=== PATIENT | female | born 1980 | race African-American/Black ===

== ENCOUNTER 2019-06-26 06:29 | Inpatient (IN) | payer OTHER ==
[2019-06-20 12:29] VITALS: BMI 20.2
[2019-06-26] MEDS ORDERED: EPHEDRINE SULFATE/0.9% NACL/PF 50 MG/10 ML SYRINGE NR ONE (07:30)
[2019-06-26] MEDS ORDERED: PROPOFOL 20 ML ONE ×2 (07:31)
[2019-06-26] MEDS ORDERED: SUCCINYLCHOLINE CHLORIDE 200 MG/10 ML SYRINGE ONE (07:31)
[2019-06-26] MEDS ORDERED: fentaNYL CITRATE 250 MCG/5 ML VIAL ONE (07:31)
[2019-06-26] MEDS ORDERED: ROCURONIUM BROMIDE 50 MG/5 ML SYRINGE ONE (07:31)
[2019-06-26] MEDS ORDERED: MIDAZOLAM HCL 2 MG/2 ML SINGLE DOSE VIAL ONE ×3 (07:31→07:45)
--- NOTE | 2019-06-26 07:41 | HP ---
Admitting History and Physical - Admission Chief Complaint: Prolonged menses / Pelvic pain History of Present Illness: 38 yo Para 3 with 3 previous c-sections, is pre op for abdominal hysterectomy. She has been experiencing heavy and prolonged menses associated with pelvic pain. History Source: Patient Limitations to Obtaining History: No Limitations - Past Medical History ...LMP: 06/17/19 ...: No ...Para: 3 - Past Surgical History Past Surgical History: Yes: - Smoking History Smoking history: Current every day smoker Have you smoked in the past 12 months: Yes Aproximately how many cigarettes per day: 7 - Alcohol/Substance Use Hx Alcohol Use: No - Social History History of Recent Travel: No Home Medications - Allergies Allergies/Adverse Reactions: Allergies Allergy/AdvReac Type Severity Reaction Status Date / Time shellfish derived Allergy Unknown Verified 06/26/19 07:33 - Home Medications Home Medications: Ambulatory Orders Acetaminophen [Tylenol] 650 mg PO Q6H PRN 06/20/19 Albuterol Sulfate Inhaler - [Ventolin Hfa Inhaler -] 2 inh PO Q4H PRN 06/20/19 Gabapentin 100 mg PO DAILY 06/20/19 Mirtazapine [Remeron -] 30 mg PO DAILY 06/20/19 Oxycodone HCl/Acetaminophen [Oxycodone-Acetaminophen 5-325] 10 mg PO TID Sumatriptan Succinate 100 mg PO PRN PRN 06/20/19 Zolpidem Tartrate [Ambien] 5 mg PO PRN PRN 06/20/19 Family Medical History Family History: Unremarkable Review of Systems - Review of Systems Constitutional: denies: Fever Eyes: denies: Blurred Vision HENT: reports: No Symptoms Neck: reports: No Symptoms Cardiovascular: reports: No Symptoms Respiratory: reports: No Symptoms Gastrointestinal: reports: No Symptoms Genitourinary: reports: Pain Breasts: reports: No Symptoms Reported Musculoskeletal: reports: No Symptoms Integumentary: reports: No Symptoms Neurological: reports: No Symptoms Endocrine: reports: No Symptoms Hematology/Lymphatic: reports: No Symptoms Psychiatric: reports: No Symptoms Pain Intensity: 3 Physical Examination Vital Signs: Vital Signs Temperature 98.4 F 06/26/19 07:24 Pulse Rate 88 06/26/19 07:24 Respiratory Rate 20 06/26/19 07:24 Blood Pressure 106/62 06/26/19 07:24 O2 Sat by Pulse Oximetry (%) 98 06/26/19 07:21 Constitutional: No: No Distress Eyes: Yes: Conjunctiva Clear HENT: Yes: Atraumatic Neck: Yes: Supple Cardiovascular: Yes: Regular Rate and Rhythm Respiratory: Yes: Regular Gastrointestinal: Yes: Normal Bowel Sounds Breast(s): Yes: WNL Musculoskeletal: Yes: WNL Extremities: Yes: WNL Neurological: Yes: Alert, Oriented ...Motor Strength: WNL Psychiatric: Yes: Alert, Oriented Problem List - Problems (1) Menorrhagia Problems reviewed: Yes Code(s): N92.0 - EXCESSIVE AND FREQUENT MENSTRUATION WITH REGULAR CYCLE Qualifiers: Menorrhagia type: with regular cycle Qualified Code(s): N92.0 - Excessive and frequent menstruation with regular cycle (2) Pelvic pain Problems reviewed: Yes Code(s): R10.2 - PELVIC AND PERINEAL PAIN Assessment/Plan Menorrhagia Pelvic pain Pre op for abdominal hysterectomy Consent signed Anesthesia to see patient
[2019-06-26] MEDS ORDERED: ceFAZolin SODIUM 1 GM VIAL IVPB ONE (08:20)
[2019-06-26] MEDS ORDERED: NEOSTIGMINE METHYLSULFATE 0.5 MG/ML - 10 ML MDV ONE (09:26)
[2019-06-26] MEDS ORDERED: HYDROmorphone HCl 2 MG/ML VIAL ONE (10:13)
[2019-06-26] MEDS ORDERED: IBUPROFEN 800 MG/8 ML IJ IVPB PRN (10:22)
[2019-06-26] MEDS ORDERED: HYDROmorphone HCl 2 MG/ML VIAL IVPB PRN (10:22)
--- NOTE | 2019-06-26 10:27 | OP ---
Operative Note - Note: Operative Date: 06/26/19 Pre-Operative Diagnosis: Menorrhagia / Pelvic pain Operation: Amdominal hysterectomy / Bilateral salpingectomy / Keloid removal Findings: Pelvic adhesions Post-Operative Diagnosis: Same as Pre-op Surgeon: Mily Wolf Utility Worker Production: Mk Floyd Anesthesia: General Specimens Removed: Uterus/Tubes/Cervix Estimated Blood Loss (mls): 100
[2019-06-26] MEDS: HYDROmorphone HCL CARPU-JECT 2 MG/1 ML DISP.SYRIN IVPUSH ONE ×2 (10:28→19:44)
[2019-06-26] MEDS ORDERED: oxyCODONE HCL 5 MG TABLET PO PRN (10:30)
[2019-06-26] MEDS ORDERED: LACTATED RINGERS SOLUTION 1,000 ML IV SCH (10:30)
[2019-06-26] MEDS ORDERED: DEXTROSE 5%-LACTATED RINGERS 1,000 ML IV SCH (10:30)
[2019-06-26] MEDS ORDERED: ONDANSETRON 4 MG/2 ML VIAL IVPUSH PRN (10:30)
[2019-06-26] MEDS ORDERED: HYDROmorphone HCl 2 MG/ML VIAL IVPUSH ONE (10:35)
[2019-06-26] MEDS: ACETAMINOPHEN 325 MG TABLET (FP) PO SCH ×3 (13:13→21:41)
[2019-06-26] MEDS: oxyCODONE HCL 5 MG TABLET PO PRN ×2 (14:08→17:46)
[2019-06-26] MEDS: traMADol HCL 50 MG TABLET PO PRN ×2 (15:49→21:41)
[2019-06-27] MEDS: oxyCODONE HCL 5 MG TABLET PO PRN ×4 (04:54→19:23)
[2019-06-27] MEDS: ACETAMINOPHEN 325 MG TABLET (FP) PO SCH ×4 (04:55→22:03)
--- NOTE | 2019-06-27 09:20 | PN ---
Progress Note, Physician Chief Complaint: Post op care History of Present Illness: Patient seen and evaluated, she c/o incision pain. She's status post abdominal hysterectomy. - Current Medication List Current Medications: Active Medications Acetaminophen (Tylenol -) 650 mg PO Q6H CHATO Stop: 06/29/19 10:29 Last Admin: 06/27/19 04:55 Dose: 650 mg Diphenhydramine HCl (Benadryl Injection -) 50 mg IM Q6H PRN PRN Reason: INSOMNIA Last Admin: 06/26/19 21:41 Dose: 50 mg Hydromorphone HCl (Dilaudid Vial -) 2 mg IVPB Q4H PRN PRN Reason: PAIN LEVEL 4 - 6 Dextrose/Lactated Ringer's (D5-Lr -) 1,000 mls @ 125 mls/hr IV ASDIR CHATO Last Admin: 06/26/19 11:55 Dose: 0 mls Ibuprofen (Caldolor Injection -) 800 mg IVPB Q8H PRN PRN Reason: FEVER Ondansetron HCl (Zofran Injection) 4 mg IVPUSH Q6H PRN PRN Reason: NAUSEA AND/OR VOMITING Oxycodone HCl (Roxicodone -) 5 mg PO Q3H PRN PRN Reason: PAIN LEVEL 4 - 6 Oxycodone HCl (Roxicodone -) 10 mg PO Q3H PRN PRN Reason: PAIN LEVEL 7 - 10 Last Admin: 06/27/19 04:54 Dose: 10 mg Tramadol HCl (Ultram -) 50 mg PO Q3H PRN PRN Reason: PAIN LEVEL 1 - 3 Last Admin: 06/26/19 21:41 Dose: 50 mg - Objective Vital Signs: Vital Signs Temperature 98.2 F 06/27/19 09:11 Pulse Rate 83 06/27/19 09:11 Respiratory Rate 18 06/27/19 09:11 Blood Pressure 121/76 06/27/19 09:11 O2 Sat by Pulse Oximetry (%) 100 06/26/19 12:15 Constitutional: Yes: Well Nourished Eyes: Yes: Conjunctiva Clear HENT: Yes: Atraumatic Neck: Yes: Supple Cardiovascular: Yes: Regular Rate and Rhythm Respiratory: Yes: Regular Gastrointestinal: Yes: Normal Bowel Sounds Genitourinary: No: Bladder Distention Breast(s): Yes: WNL Musculoskeletal: Yes: WNL Extremities: Yes: WNL Wound/Incision: Yes: Dressing Dry and Intact Neurological: Yes: Alert, Oriented ...Motor Strength: WNL Psychiatric: Yes: Alert, Oriented Problem List - Problems (1) Menorrhagia Problems reviewed: Yes Code(s): N92.0 - EXCESSIVE AND FREQUENT MENSTRUATION WITH REGULAR CYCLE Qualifiers: Menorrhagia type: with regular cycle Qualified Code(s): N92.0 - Excessive and frequent menstruation with regular cycle (2) Pelvic pain Problems reviewed: Yes Code(s): R10.2 - PELVIC AND PERINEAL PAIN (3) Status post abdominal hysterectomy Problems reviewed: Yes Code(s): Z90.710 - ACQUIRED ABSENCE OF BOTH CERVIX AND UTERUS Assessment/Plan Status abdominal hysterectomy Ambulation Regular diet Analgesia as needed D/C Li catheter D/C IVF F/U Labs Continue post op care
[2019-06-27 10:19] LABS: BASO % 0.5 % (0-2.0); EOS % 0.1 % (0-4.5); HEMATOCRIT 27.9 % (32.4-45.2); HEMOGLOBIN 9.4 GM/dL (10.7-15.3); LYMPH % 18.6 % (8-40); MCH 32.7 pg (25.7-33.7); MCHC 33.8 g/dl (32.0-36.0); MEAN CELL VOLUME 96.8 fl (80-96); MEAN PLT VOLUME 7.7 fl (7.5-11.1); MONO % 13.4 % (3.8-10.2); NEUT % 67.4 % (42.8-82.8); PLATELET COUNT 270 K/MM3 (134-434); RBC 2.89 M/mm3 (3.60-5.2); RDW 13.1 % (11.6-15.6); WHITE BLOOD COUNT 17.3 K/mm3 (4.0-10.0)
[2019-06-27 11:01] LABS: BLOOD UREA NITROGEN 4.6 mg/dL (7-18); CALCIUM 8.1 mg/dL (8.5-10.1); CREATININE 0.5 mg/dL (0.55-1.3)
[2019-06-28] MEDS: oxyCODONE HCL 5 MG TABLET PO PRN ×2 (02:40→07:49)
[2019-06-28 05:24] VITALS: BP 133/90; PULSE 90; TEMP 98.3
[2019-06-28] MEDS: ACETAMINOPHEN 325 MG TABLET (FP) PO SCH (05:25)
--- NOTE | 2019-06-28 08:19 | DS ---
Physical Examination Vital Signs: Vital Signs Temperature 98.3 F 06/28/19 05:20 Pulse Rate 90 06/28/19 05:20 Respiratory Rate 18 06/28/19 05:20 Blood Pressure 133/90 06/28/19 05:20 O2 Sat by Pulse Oximetry (%) 98 06/27/19 21:00 Constitutional: Yes: No Distress Eyes: Yes: Conjunctiva Clear HENT: Yes: Atraumatic Neck: Yes: Supple Cardiovascular: Yes: Regular Rate and Rhythm Respiratory: Yes: Regular Gastrointestinal: Yes: Normal Bowel Sounds Musculoskeletal: Yes: WNL Extremities: Yes: WNL Wound/Incision: Yes: Well Approximated, Steri Strips (in place) Neurological: Yes: Alert, Oriented ...Motor Strength: WNL Psychiatric: Yes: Alert, Oriented Labs: CBC, BMP 06/27/19 09:42 06/27/19 09:42 Discharge Summary Problems reviewed: Yes Reason For Visit: PELVIC PAIN Current Active Problems Menorrhagia (Acute) Pelvic pain (Acute) Status post abdominal hysterectomy (Acute) Procedures: Principal: Abdominal hysterectomy and bilateral salpingectomy Hospital Course: Routine post op care Health Concerns: None Plan of Treatment: Ambulation Analgesia as needed F/U with MD in 1 week Goals: Resume regular activities in 3-4 weeks Condition: Good - Instructions Diet, Activity, Other Instructions: Regular diet No driving, no lifting 4 weeks F/U with MD in 1 week Disposition: HOME - Home Medications Comprehensive Discharge Medication List: Ambulatory Orders Acetaminophen [Tylenol] 650 mg PO Q6H PRN 06/20/19 Albuterol Sulfate Inhaler - [Ventolin Hfa Inhaler -] 2 inh PO Q4H PRN 06/20/19 Gabapentin 100 mg PO DAILY 06/20/19 Mirtazapine [Remeron -] 30 mg PO DAILY 06/20/19 Oxycodone HCl/Acetaminophen [Oxycodone-Acetaminophen 5-325] 10 mg PO TID Sumatriptan Succinate 100 mg PO PRN PRN 06/20/19 Zolpidem Tartrate [Ambien] 5 mg PO PRN PRN 06/20/19
--- NOTE | 2019-06-28 15:12 | PATH ---
Surgical Pathology Report Patient Name: AN DIOP [facility]. Rec. #: [id number] /Age/Gender: 1980 (Age: 38) / F Account: [id number] Location: [facility] MED/SURG Taken: 06/26/2019 Received: 06/26/2019 Reported: 06/28/2019 Physicians: Mily Wolf M.D. Specimen(s) Received A: LEFT FALLOPIAN TUBE B: RIGHT FALLOPIAN TUBE C: KELOID SKIN D: UTERUS AND CERVIX E: VAGINAL MUCOSA Clinical History Pelvic pain, menorrhagia Final Diagnosis A. LEFT FALLOPIAN TUBE, SALPINGECTOMY: PORTION OF FALLOPIAN TUBE WITH PARATUBAL CYSTS. B. RIGHT FALLOPIAN TUBE, SALPINGECTOMY: PORTION OF FALLOPIAN TUBE WITH PARATUBAL CYSTS. C. KELOID SKIN, EXCISION: PORTION OF SKIN WITH SCAR. D. UTERUS AND CERVIX, HYSTERECTOMY: FOCAL ADENOMYOSIS. PROLIFERATIVE ENDOMETRIUM WITH FOCAL MILD CHRONIC ENDOMETRITIS. CERVIX WITH SQUAMOUS METAPLASIA. E. VAGINA MUCOSA, EXCISION: PORTION OF SQUAMOUS MUCOSA WITH FOCAL CHRONIC INFLAMMATION. NEGATIVE FOR DYSPLASIA. Electronically Signed Sherri Levy M.D. Gross Description A. Received in formalin labeled "left fallopian tube," is a 1.3 cm in length fimbriated fallopian tube. The outer surface is valenzuela smith with multiple paratubal cysts attached, measuring up to 1.0 cm in greatest dimension. Sectioning reveals an unremarkable lumen. Waxed Bag Machine Operator sections are submitted in 2 cassettes as follows: 1-fimbria with paratubal cysts; 2-cross sections of fallopian tube. B. Received in formalin labeled "right fallopian tube," is a 2.7 cm in length fimbriated fallopian tube. The outer surface is valenzuela-brown and smooth. Sectioning reveals an unremarkable lumen. Waxed Bag Machine Operator sections are submitted in 2 cassettes as follows: 1-fimbria; 2-cross sections of fallopian tube. C. Received in formalin labeled "keloid skin," is a 12.5 x 0.8 cm brown, elongated portion of skin excised to a depth of 0.8 cm. The epidermal surface displays a central, linear, healed scar. Waxed Bag Machine Operator sections are submitted in one cassette. D. Received in formalin labeled "uterus and cervix," is a 111 g uterus with an attached cervix and no attached adnexa. The specimen measures 9 cm from superior to inferior, 5 cm from left to right and 4.5 cm from anterior to posterior. The serosa is valenzuela-miguel and smooth. The attached cervix measures 3 cm in length and averages 2.3 cm in diameter. The cervix is valenzuela-pink, smooth and glistening. The endocervix is unremarkable. The endometrial cavity measures 4.3 cm in length and averages 2 cm from cornu to cornu. The endometrium is valenzuela-red and averages 0.3 cm in thickness. The myometrium is valenzuela-pink and measures up to 2.3 cm in thickness. No intramural nodules are identified. Waxed Bag Machine Operator sections are submitted in 6 cassettes as follows: 1-anterior cervix; 2-posterior cervix; 2-7-[id number] endomyometrium; 7-1-ljgurjqws endomyometrium. E. Received in formalin labeled "vaginal mucosa," is a 2.5 x 1.7 x 0.6 cm valenzuela-miguel portion of mucosal tissue. Waxed Bag Machine Operator sections are submitted in one cassette. 06/27/2019 [facility]06/27/2019
--- NOTE | 2019-07-05 15:23 | OP ---
DATE OF OPERATION: 06/26/2019 PREOPERATIVE DIAGNOSES: Menorrhagia and pelvic pain. POSTOPERATIVE DIAGNOSES: Menorrhagia, pelvic pain, and fibroid uterus. PROCEDURE: Abdominal hysterectomy. SURGEON: Mily Wolf MD LINEN CHECKER: Mk Floyd MD ANESTHESIA: General. COMPLICATIONS: None. ESTIMATED BLOOD LOSS: 200 mL. PROCEDURE: Patient was taken to the operating room where general anesthesia was administered. Patient was then prepped and draped in proper sterile fashion. A Pfannenstiel skin incision was made approximately 2 cm above the pubis symphysis and extended sharply to the rectus fascia. The fascia was then incised bilaterally with the Bovie cautery and the muscles of the anterior abdominal wall were in the midline by sharp and blunt dissection. The peritoneum was then grasped between two pick-ups, elevated, and entered sharply with the Metzenbaum scissors. The pelvis was then examined and the uterus was exteriorized. A large myoma was noted on the fundal part of the uterus and the bowel was packed with moist laparotomy sponges. Using the Bovie cautery, an incision was made on the posterior side of the uterus to the fundus, and using the Metzenbaum scissors and blunt dissection, the large myoma was shelled out of the uterus. There were two other small subserosal leiomyoma that were also removed and the incisions were closed using 2-0 Vicryl. The incisions were closed in layers, and using baseball stitch and 2-0 Biosyn, the serosal portion of the uterus was closed. The pelvis was then completely irrigated. The uterus was returned to the abdomen. The peritoneum was closed using 2-0 Biosyn. The fascia was reapproximated using 0 Vicryl in a running fashion. The skin was closed in a subcuticular fashion using 3-0 Vicryl. Patient tolerated procedure well. Sponge, lap and needle counts were correct x2. Patient was taken to PACU in stable condition. PATHOLOGY: A myoma. MILY WOLF M.D. [id number]
== END 2019-06-28 09:58 | disposition home or self-care (01) | DRG 519 ==
LOC: JSAMEDAYSX 06:29 → EDSTATUS 07:30 → J8W 12:15
PROVIDERS: ADMIT Obstetrics & Gynecology; ATTEND Obstetrics & Gynecology
PROC: 0UT70ZZ Resection of Bilateral Fallopian Tubes, Open Approach (ICD-10-PCS; 2019-06-26)
PROC: 0UT90ZZ Resection of Uterus, Open Approach (ICD-10-PCS; principal; 2019-06-26 07:30)
DX: D25.2 Subserosal leiomyoma of uterus (principal); N92.0 Excessive and frequent menstruation with regular cycle; R10.2 Pelvic and perineal pain; L91.0 Hypertrophic scar; N80.0 Endometriosis of uterus; N71.9 Inflammatory disease of uterus, unspecified; G43.109 Migraine with aura, not intractable, without status migrainosus; J45.20 Mild intermittent asthma, uncomplicated; M10.9 Gout, unspecified; F17.210 Nicotine dependence, cigarettes, uncomplicated; N83.8 Other noninflammatory disorders of ovary, fallopian tube and broad ligament; F41.1 Generalized anxiety disorder; E78.00 Pure hypercholesterolemia, unspecified
CPT/HCPCS: 36415; 80048; 84703; 85025; 86850; 86900; 86901; 88302-TC; 88304-TC; 88307-TC; 94010; 94760